=== PATIENT | male | born 1975 | race Caucasian/White ===

== ENCOUNTER 2019-04-12 18:16 | Emergency (ER) | payer OTHER ==
[~2019-04-12] VITALS: Ht 170.1 cm; Wt 74.8 kg
--- NOTE | ~2019-04-12 | EKG ---
[place], [place] ELECTROCARDIOGRAM REPORT NAME: JAVIER LINDSAY UNIT #: [id number] ROOM: DOCTOR: JONELLE DRAFT REPORT BIRTHDATE: [birth year] [facility] Test Date: 2019-04-12 Test Time: 21:09:58 Pat Name: JAVIER LINDSAY Department: Room: Gender: Physician Primary Care Sports Medicine: SS RESP : 1975 Requested By: HORTENCIA VALDEZ Order Number: [id number] Reading MD: Seymour Poe MD Measurements Intervals [place] Rate: 71 P: 31 CA: 138 QRS: -82 QRSD: 103 T: 50 QT: 375 QTc: 408 Interpretive Statements Sinus rhythm LAD, consider left anterior fascicular block Electronically Signed On 04-18-2019 17:49:58 PDT by Seymour Poe MD CM:EKGRPT:ELECTROCARDIOGRAM REPORT [id number] HORTENCIA SAL DRAFT REPORT HORTENCIA VALDEZ M.D.
--- NOTE | ~2019-04-12 | EKG ---
[place], [place] ELECTROCARDIOGRAM REPORT NAME: JAVIER LINDSAY UNIT #: [id number] ROOM: DOCTOR: JONELLE DRAFT REPORT BIRTHDATE: [birth year] [facility] Test Date: 2019-04-12 Test Time: 18:19:25 Pat Name: JAVIER LINDSAY Department: Room: Gender: [employer]: : 1975 Requested By: HORTENCIA VALDEZ Order Number: [id number] Reading MD: Seymour Poe MD Measurements Intervals [place] Rate: 84 P: 48 AR: 140 QRS: -81 QRSD: 101 T: 54 QT: 354 QTc: 419 Interpretive Statements Sinus rhythm Multiple ventricular premature complexes LAD, consider left anterior fascicular block Electronically Signed On 04-18-2019 17:49:03 PDT by Seymour Poe MD CM:EKGRPT:ELECTROCARDIOGRAM REPORT [id number] HORTENCIA SAL DRAFT REPORT HORTENCIA VALDEZ M.D.
[2019-04-12 18:42] LABS: BASO % 0.3 % (0.0-1.0); EOS # 0.1 10*3/uL (0.0-0.4); EOS % 0.8 % (1.0-4.0); HEMATOCRIT 43.5 % (42.0-52.0); HEMOGLOBIN 14.3 g/dl (14.0-18.0); LYMPH # 1.3 10*3/uL (1.3-4.4); LYMPH % 15.5 % (27.0-41.0); MEAN CELL VOLUME 91.8 fl (80.0-94.0); MEAN CORPUSCULAR HGB 30.2 pg (27.0-31.0); MEAN CORPUSCULAR HGB CONC 32.9 g/dl (33.0-37.0); MEAN PLATELET VOLUME 9.5 fl (9.6-12.3); MONO # 0.5 10*3/uL (0.1-1.0); MONO % 6.3 % (3.0-9.0); NEUT # 6.6 10*3/uL (2.3-7.9); NEUT % 76.9 % (47.0-73.0); PLATELET COUNT AUTOMATED 315 10*3/uL (130-400); RED BLOOD COUNT 4.74 10*6/uL (4.50-5.90); RED CELL DISTRI WIDTH 13.9 % (0-14.5); WHITE BLOOD COUNT 8.6 10*3/uL (4.8-10.8)
[2019-04-12 18:54] LABS: ACT PARTIAL THROMBO TIME 28.5 SECONDS (20.0-32.1); INTERNATIONAL NORM RATIO 0.9 (2.0-3.5)
[2019-04-12 18:59] LABS: ALBUMIN 3.4 gm/dl (3.1-4.5); ALKALINE PHOSPHATASE 108 U/L (45-117); BUN 15 mg/dl (7-24); CHLORIDE 109 mmol/L (98-107); CREATININE 0.98 mg/dL (0.70-1.30); POTASSIUM 3.9 mmol/L (3.5-5.1); SGOT/AST 12 IU/L (3-35); SGPT/ALT 22 U/L (12-78); SODIUM 141 mmol/L (136-145); TOTAL PROTEIN 6.7 gm/dL (6.4-8.2)
[2019-04-12 19:04] LABS: TROPONIN I < 0.015 ng/ml (<0.045)
== END 2019-04-12 23:38 | disposition home or self-care (01) ==
LOC: ED 18:16
PROVIDERS: Emergency Medicine
DX: R07.89 Other chest pain (principal); R42 Dizziness and giddiness; F14.90 Cocaine use, unspecified, uncomplicated